=== PATIENT | female | born 1980 | race Caucasian/White ===

== ENCOUNTER → 2021-05-05 | Outpatient (CLI) | payer OTHER ==
[~2021-05-05] MED LIST: COLACE 100MG C100 MG PO; IBUPROFEN600 MG PO; OMNICEF 300 MG300 MG PO
[2021-05-05 11:07] LABS: GLUCOSE,CSF 61 mg/dL (50-80); TOTAL PROTEIN,CSF 25 mg/dL (20-45)
[2021-05-05 11:21] LABS: WBC (AUTOMATED 3 10^3 (0-5)
[2021-05-05 11:22] LABS: WBC (AUTOMATED 3 10^3 (0-5)
== END ==
LOC: EDSTATUS 07:30 → OR 07:30 → RAD 08:15
PROVIDERS: Ophthalmology
DX: H53.9 Unspecified visual disturbance (principal)
CPT/HCPCS: 70543; 70553; 82945; 84157; 87015; 87070; 87116; 87205; 87210; 87252; 89051; A9577

== ENCOUNTER 2021-05-07 18:17 | Emergency (ER) | payer OTHER | END 2021-05-07 21:37 | disposition home or self-care (01) | LOC: ER1 18:17 | DX: G97.1 Other reaction to spinal and lumbar puncture (principal); Y84.4 Aspiration of fluid as the cause of abnormal reaction of the patient, or of later complication, without mention of misadventure at the time of the procedure | CPT/HCPCS: 99283 ==